=== PATIENT | male | born 1990 | race Hispanic/Latino ===

== ENCOUNTER 2021-05-16 00:35 | Emergency (ER) | payer OTHER ==
[~2021-05-16] VITALS: Ht 157.5 cm; Wt 81.6 kg
[2021-05-16] MEDS ORDERED: TETANUS/DIPHTHERIA TOXOID [ADULT] 0.5 ML VIAL IM ONE (01:30)
[2021-05-16] MEDS ORDERED: SULFAMETHOX-TMP DS 800/160 TAB PO ONE (01:30)
[2021-05-16] MEDS ORDERED: LIDOP TP (03:38)
[2021-05-16] MEDS ORDERED: MELO7.5T12 PO (03:38)
[2021-05-16] MEDS ORDERED: ORPH-43 PO (03:38)
[2021-05-16 03:41] VITALS: BP 129/81
== END 2021-05-16 03:56 | disposition home or self-care (01) ==
LOC: EDH 00:35
DX: S43.102A Unspecified dislocation of left acromioclavicular joint, initial encounter (principal); S00.03XA Contusion of scalp, initial encounter; S00.31XA Abrasion of nose, initial encounter; S00.212A Abrasion of left eyelid and periocular area, initial encounter; S00.211A Abrasion of right eyelid and periocular area, initial encounter; Z79.1 Long term (current) use of non-steroidal anti-inflammatories (NSAID); X58.XXXA Exposure to other specified factors, initial encounter; Y93.89 Activity, other specified; Y92.89 Other specified places as the place of occurrence of the external cause; Y99.8 Other external cause status
CPT/HCPCS: 70450; 71250; 72125; 73080; 90471; 90714

== ENCOUNTER 2022-06-27 01:46 | Emergency (ER) | payer OTHER ==
[~2022-06-27] VITALS: Ht 170.2 cm; Wt 84.4 kg
[~2022-06-27 01:46] MED LIST: LIDOP TP; MELO7.5T12 PO; ORPH100T4 PO
[2022-06-27 02:21] LABS: BASOPHILS % (AUTO) 0.7 % (0.0-5.0); EOSINOPHILS % (AUTO) 0.4 % (0.0-8.0); HEMATOCRIT 41.8 % (42-54); LYMPHOCYTES % (AUTO) 17.2 % (21.0-51.0); MEAN CORPUSCULAR HEMOGLOBIN 26.6 pg (27.0-33.0); MEAN CORPUSCULAR HGB CONC 32.8 g/dL (32.0-36.0); MONOCYTES % (AUTO) 21.6 % (3.0-13.0); NEUTROPHILS % (AUTO) 57.6 % (40.0-77.0); PLATELET COUNT (AUTO) 217 K/uL (130-400); RED BLOOD CELL COUNT(AUTO) 5.16 MIL/uL (4.50-6.20); RED CELL DISTRIBUTION WIDTH 13.4 % (11.0-15.5); WHITE BLOOD COUNT (AUTO) 10.4 K/uL (4.8-10.8)
[2022-06-27 02:25] LABS: CREATININE 0.8 mg/dL (0.5-1.5); POTASSIUM 3.5 mmol/L (3.5-5.1)
[2022-06-27 02:26] LABS: APPEARANCE,URINE CLEAR (CLEAR); BILIRUBIN,URINE NEGATIVE (NEGATIVE); COLOR,URINE LIGHT-YELLOW (YELLOW); GLUCOSE, URINE (UA) NEGATIVE (NEGATIVE); KETONES,URINE NEGATIVE (NEGATIVE); LEUKOCYTE ESTERASE ,URINE NEGATIVE Leu/uL (NEGATIVE); NITRATE,URINE NEGATIVE (NEGATIVE); OCCULT BLOOD,URINE NEGATIVE (NEGATIVE); PH,URINE 5.5 (5.0-8.0); PROTEIN,URINE NEGATIVE (NEGATIVE); UROBILINOGEN,URINE 0.2 mg/dL (0.2-1.0)
[2022-06-27 02:30] LABS: ALBUMIN 3.8 g/dL (3.5-5.0); TOTAL PROTEIN, SERUM 8.4 g/dL (6.0-8.3)
[2022-06-27] MEDS ORDERED: ONDANSETRON 4MG INJ IVP ONE (02:30)
[2022-06-27] MEDS ORDERED: KETOROLAC 30MG VIAL (30MG/ML) IVP ONE (02:30)
[2022-06-27] MEDS ORDERED: FAMOTIDINE 20MG VIAL IV ONE (02:30)
[2022-06-27] MEDS ORDERED: LACTATED RINGERS 1000ML 1,000 ML IV ONE (02:30)
[2022-06-27] MEDS ORDERED: IOHEXOL-350 75 ML VIAL IV ONE (02:32)
[2022-06-27 04:13] VITALS: BP 117/64
[2022-06-27] MEDS ORDERED: LACT1CAP81 PO (04:14)
[2022-06-27] MEDS ORDERED: ONDA4TAB10 SL (04:14)
[2022-06-27] MEDS ORDERED: FAMO-136 PO (04:14)
== END 2022-06-27 04:25 | disposition home or self-care (01) ==
LOC: EDH 01:46
DX: K52.9 Noninfective gastroenteritis and colitis, unspecified (principal); Z79.899 Other long term (current) drug therapy; Z98.890 Other specified postprocedural states; Z20.822 Contact with and (suspected) exposure to COVID-19
CPT/HCPCS: 99285; 74177; 96374; 96375; 87635; 80053; 83690; 85025; 87804 ×2; 81003; 36415; C9803; J3490; J2405; J1885; Q9967